=== PATIENT | female | born 1955 | race Caucasian/White ===

== ENCOUNTER 2019-06-12 16:05 | Emergency (ER) | payer BC ==
[~2019-06-12] VITALS: Ht 162.6 cm; Wt 60.3 kg
[2019-06-12 16:15] VITALS: BP 132/81
--- NOTE | 2019-06-12 16:15 | NUR ---
ED Nurse Note: Patient walked into ED c/o 12/24 bilataral wrist pain with know obvious cause.
[2019-06-12] MEDS ORDERED: Ketorolac 60mg Inj IM ONE (16:30)
--- NOTE | 2019-06-12 16:31 | Emergency Room Report ---
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 Denies any elbow pain denies any shoulder knee or other extremity/joint pain Patient reports wearing a latex glove Soon after that started getting irritation to her hands and that wrist area also started getting a rash diffusely however no symptoms improved after she removed it however the hands started hurting soon after Denies any fevers Allergies: Coded Allergies: IBUPROFEN (Verified Allergy, Unknown, 06/12/19) LATEX (Verified Allergy, Unknown, 06/12/19) COVID-19 Screening Contact w/high risk pt: No Recent Travel to affected area: No Experienced COVID-19 symptoms?: No Patient History Past Medical History: see triage record Last Menstrual Period: menopause Reviewed Nursing Documentation: PMH: Agreed; PSxH: Agreed Nursing Documentation-PMH Past Medical History: No History, Except For Hx Asthma: Yes Review of Systems All Other Systems: negative except mentioned in HPI Physical Exam Vital Signs Date Time Temp Pulse Resp B/P (MAP) Pulse Ox O2 Delivery O2 Flow Rate FiO2 06/12/19 16:10 98.1 99 18 132/81 (98) 96 Room Air Sp02 EP Interpretation: reviewed, normal General Appearance: well appearing, no apparent distress Head: normocephalic, atraumatic Eyes: bilateral eye PERRL, bilateral eye EOMI ENT: hearing grossly normal Neck: supple Respiratory: lungs clear, no respiratory distress, no retraction Cardiovascular #1: regular rate, rhythm Gastrointestinal: soft Musculoskeletal: other - Patient has pain when trying to flex at the wrist bilaterally, there is no obvious erythema patient has sensory intact however also has pain with trying to make full flexion,, and flexing the fingers Neurologic: alert Skin: no rash Lymphatic: no adenopathy Medical Decision Making Diagnostic Impression: Primary Impression: Arthralgia Additional Impression: Carpal tunnel syndrome ER Course Patient appears to be having type of possible rheumatoid arthralgia, carpal tunnel appears to be involved I do not appreciate any obvious infectious process Patient has good cap refill and there is no signs of vascular compromise Patient will be treated with anti-pronation process And requires close outpatient follow-up Last Vital Signs Date Time Temp Pulse Resp B/P (MAP) Pulse Ox O2 Delivery O2 Flow Rate FiO2 06/12/19 16:10 98.1 99 18 132/81 (98) 96 Room Air Status: improved Disposition: HOME, SELF-CARE Condition: Improved Additional Instructions: Patient is provided with the discharge instructions notified to follow up with primary doctor in the next 2-3 days otherwise return to the er with any worsening symptoms. Please note that this report is being documented using [employer] technology. This can lead to erroneous entry secondary to incorrect interpretation by the dictating instrument. Doyle Martell DO Jun 12, 2019 16:31
[2019-06-12] MEDS ORDERED: MELOXICAM7.5 MG PO (16:34)
[2019-06-12] MEDS ORDERED: MEDROL DOSEPAK4 MG ORAL (16:34)
--- NOTE | 2019-06-12 16:40 | NUR ---
ER DISCHARGE NOTE: Patient is cleared to be discharged per Dr. Martell, pt is aox4, on room air, with stable vital signs. pt was given dc and prescription instructions, pt was able to verbalize understanding, pt id band removed. pt is able to ambulate with steady gait. pt took all belongings.
== END 2019-06-12 16:45 | disposition home or self-care (01) ==
LOC: EMR 16:20
DX: M25.532 Pain in left wrist (principal); M25.531 Pain in right wrist; G56.00 Carpal tunnel syndrome, unspecified upper limb; Z88.6 Allergy status to analgesic agent; Z91.040 Latex allergy status
CPT/HCPCS: 96372; 99283; J7512